=== PATIENT | female | born 1980 | race Native Hawaiian/Other Pacific Islander ===

== ENCOUNTER 2016-07-05 18:56 | Emergency (ER) | payer OTHER ==
[~2016-07-05] VITALS: Ht 152.4 cm; Wt 72.6 kg
[2016-07-05 20:30] VITALS: BP 110/72; TEMP 98
== END 2016-07-05 20:30 | disposition home or self-care (01) ==
LOC: ED 18:56
DX: G43.909 Migraine, unspecified, not intractable, without status migrainosus (principal)
CPT/HCPCS: 36415; 96365; 96375; 99284; J1100; J1200; J1885; J2405

== ENCOUNTER 2019-07-20 03:09 | Emergency (ER) | payer OTHER ==
[~2019-07-20] VITALS: Ht 152.4 cm; Wt 62.1 kg
[2019-07-20 03:09] VITALS: TEMP 98.7
[2019-07-20 04:14] VITALS: BP 126/71
== END 2019-07-20 04:16 | disposition home or self-care (01) ==
LOC: ED 03:20
DX: H65.191 Other acute nonsuppurative otitis media, right ear (principal); F17.210 Nicotine dependence, cigarettes, uncomplicated
CPT/HCPCS: 93005; 96360; 96365; 96375; 96376; 99284; J0696; J1885